=== PATIENT | female | born 2000 | race African-American/Black ===

== ENCOUNTER 2020-08-26 12:12 | Emergency (ER) | payer MEDICAID, OTHER ==
[~2020-08-26] VITALS: Ht 177.8 cm; Wt 63.0 kg
[2020-08-26 12:16] VITALS: BP 129/77
--- NOTE | 2020-08-26 12:21 | NUR ---
PT TAKEN TO ER LOBBY.
--- NOTE | 2020-08-26 12:58 | NUR ---
PT AMBULATED TO ER BED 3.
--- NOTE | 2020-08-26 13:03 | NUR ---
19 Y/O FEMALE C/O CONGESTION X 1 WEEK WITH CHEST PAIN 6/10 DESCRIBES PRESSURE AND ACHING THAT RADIATES TO BACK. PT STATES HAD SIMILAR SYMPTOMS PREVIOUSLY AND DX WITH BRONCHITIS. LUNG SOUNDS ARE CLEAR TO AUSCULTATION THROUGHOUT, NO PRESENCE OF A COUGH, NO SIGNS OR SYMPTOMS OF RESPIRATORY DISTRESS AT THIS TIME. PMH: BRONCHITIS IN 2019 ALLERGIES: KEFLEX
--- NOTE | 2020-08-26 13:28 | NUR ---
MELISSA Arnettto at pt bedside for further evaluation.
--- NOTE | 2020-08-26 13:47 | NUR ---
service tech at pt bedside.
--- NOTE | 2020-08-26 14:33 | NUR ---
MELISSA Quinteros at pt bedside for US.
[2020-08-26] MEDS ORDERED: IBUP-2213 PO (14:38)
[2020-08-26 14:47] VITALS: BP 129/77
--- NOTE | 2020-08-26 14:47 | NUR ---
Patient discharged with v/s stable. Written and verbal after care instructions given FOR CHEST PAIN and explained. Patient alert, oriented and verbalized understanding of instructions. Ambulatory with steady gait. All questions addressed prior to discharge. ID band removed. Patient advised to follow up with PMD. Rx of IBUPROFEN 600MG PO TID PRN PAIN given. Patient educated on indication of medication including possible reaction and side effects. Opportunity to ask questions provided and answered.
== END 2020-08-26 14:47 | disposition home or self-care (01) ==
LOC: MED 12:12
DX: R07.2 Precordial pain (principal); R03.0 Elevated blood-pressure reading, without diagnosis of hypertension; Z88.1 Allergy status to other antibiotic agents; Z79.899 Other long term (current) drug therapy
CPT/HCPCS: 36415; 71045; 85379; 93005; 99285

== ENCOUNTER 2020-09-07 21:32 | Emergency (ER) | payer OTHER ==
[~2020-09-07] VITALS: Ht 177.8 cm; Wt 62.1 kg
[~2020-09-07 21:32] MED LIST: IBUP-2213 PO
[2020-09-07 21:42] VITALS: BP 131/98
--- NOTE | 2020-09-07 21:42 | NUR ---
TO BED AMBULATORY
--- NOTE | 2020-09-07 21:50 | NUR ---
19/F BIB SELF C/O CHEST PAIN AND SOB FOR 3 WEEKS. PT DESCRIBES PAIN AT THE STERNAL AREA PRESSURE-LIKE/HEAVINESS AND SHARP THAT COMES AND GOES. PT STATES PAIN RADIATES TO HER LEFT AND RIGHT UPPER CHEST AND GIVES IT A PAIN SCALE OF 6/10. UPON ASSESSMENT PT CURRENTLY NOT IN DISTRESS, O2 SAT 98%. OTHER VS STABLE. DENIES PMH ALLERGY: CEPHALEXIN
--- NOTE | 2020-09-07 22:48 | NUR ---
RADIOLOGY AT BEDSIDE
[2020-09-07 23:22] LABS: BASOPHILS # (AUTO) 0.1 K/uL (0.00-0.22); BASOPHILS % (AUTO) 2.4 % (0.0-2.0); EOSINOPHILS # (AUTO) 0.1 K/uL (0-0.4); EOSINOPHILS % (AUTO) 1.1 % (0.0-4.0); HEMATOCRIT 38.1 % (36-48); HEMOGLOBIN 12.7 g/dL (12.0-16.0); LYMPHOCYTES # (AUTO) 2.1 K/uL (2.5-16.5); LYMPHOCYTES % (AUTO) 36.6 % (20.5-51.1); MEAN CORPUSCULAR HEMOGLOBIN 31 pg (27-31); MEAN CORPUSCULAR HGB CONC 33 g/dL (33-37); MEAN CORPUSCULAR VOLUME 92.3 fL (80-94); MONOCYTES # (AUTO) 0.5 K/uL (0.8-1.0); MONOCYTES % (AUTO) 8.4 % (1.7-9.3); NEUTROPHILS % (AUTO) 51.5 % (42.2-75.2); PLATELET COUNT (AUTO) 241 K/uL (140-450); RED BLOOD CELL COUNT(AUTO) 4.13 MIL/uL (4.20-5.40); RED CELL DISTRIBUTION WIDTH 12.1 % (11.6-13.7); WHITE BLOOD COUNT (AUTO) 5.8 K/uL (4.8-10.8)
[2020-09-07 23:36] LABS: ALBUMIN 3.9 g/dL (3.4-5.0); CARBON DIOXIDE 28.6 mmol/L (21-32); CREATININE 0.9 mg/dL (0.6-1.3); POTASSIUM 3.6 mmol/L (3.5-5.1); TOTAL BILIRUBIN 0.5 mg/dL (0.0-1.0)
[2020-09-07 23:45] LABS: PROTHROMBIN TIME 11.2 secs (10.8-13.4)
[2020-09-07 23:52] LABS: D-DIMER < 100 ng/ml (0-400)
--- NOTE | 2020-09-08 01:55 | NUR ---
THIS RN WENT BEDSIDE TO GO OVER DISCHARGE INSTRUCTIONS WITH PATIENT. UPON ENTERING ROOM, PT WAS NOT PRESENT AND HOSPITAL GOWN WAS PLACED ON THE BEDSIDE. BOTH FACILTY RESTROOMS CHECKED AND PATIENT NOT FOUND. PT LEFT FACILITY WITHOUT DISCHARGE INSTRUCTIONS.
== END 2020-09-08 01:55 | disposition home or self-care (01) ==
LOC: MED 21:32
DX: R07.2 Precordial pain (principal); R06.02 Shortness of breath; Z88.1 Allergy status to other antibiotic agents; Z79.899 Other long term (current) drug therapy
CPT/HCPCS: 36415; 71045; 80053; 84484; 85025; 85379; 85610; 85730; 93005; 99285